=== PATIENT | male | born 1975 | race Caucasian/White ===

== ENCOUNTER 2020-12-19 14:21 | Emergency (ER) | payer SELFPAY ==
[2020-12-19] MEDS ORDERED: Cephalexin 500 MG Cap PO ONE (15:00)
[2020-12-19] MEDS ORDERED: Diphtheria,Pertussis(Acell),Tetanus Vaccine 0.5 ML Syringe IM ONE (15:00)
--- NOTE | 2020-12-19 15:14 | EDM.PDOC ---
ED HPI GENERAL MEDICAL PROBLEM - General Chief Complaint: Upper Extremity Injury/Pain Stated Complaint: LEFT HAND INJURY Time Seen by Provider: 12/19/20 14:24 Source of Information: Reports: Patient History Limitations: Reports: No Limitations - History of Present Illness INITIAL COMMENTS - FREE TEXT/NARRATIVE: History of present illness: 45-year-old male presents complaining of left hand 4th digit swelling, redness and pain that started approximately 5 days ago. He reports no significant PMH. Patient states that he moved to [place] recently and has been building wood boxes. He is unsure if he had a splinter in his finger or not. Reports that he is unable to make a complete closed fist due to pain and swelling. Denies any significant trauma to his hand or fingers. Denies having any fevers or chills. Reports no history of skin infections in the past. Is moderately severe worse when it is touched worse with range of motion. There is no significant radiation. Is no significant associated signs of systemic infection Review of systems: As per history of present illness and below otherwise all systems reviewed and negative. Past medical history: As per history of present illness and as reviewed below otherwise noncontributory. Surgical history: As per history of present illness and as reviewed below otherwise noncontributory. Social history: Tobacco: 1 ppd Alcohol: socially Illicit drugs: Denies. Family history: As per history of present illness and as reviewed below otherwise noncontributory. Physical exam: Constitutional - well developed, well-nourished and in no acute distress HEENT - normocephalic, no evidence of trauma - external nose and mouth normal - no mass in neck and no JVD - mucosae moist EYES - EOMI intact. Respiratory - no respiratory distress, equal bilateral expansion, lungs clear to auscultation and no abnormal lung sounds Cardiovascular - Regular Rhythm with S1 and S2 appreciated and no murmur, gallop or rub. GI - abdomen soft without distension or organomegaly - normal bowel sounds - no guard or rebound. Musculoskeletal: Left Hand - circumferential edema and erythema of proximal 4th digit and edema of dorsum of hand. Mild ttp. Mild increased warmth to touch. Unable to fully flex and extend 4th digit secondary to pain. Neurologic - Alert and oriented times four - CN II-XII grossly intact - motor sensory and coordination symmetrically normal. Psychiatric - appropriate mood and affect with normal thought content Diagnostics: Bedside ultrasound. Therapeutics: Keflex Boostrix Impression: Tenosynovitis of left hand 4th digit Plan: Dose of keflex administered in ER department. Boostrix vaccine given in ER department. Will discharge with script of keflex and place referral to hand surgeon in [place], [place]. Definitive disposition and diagnosis as appropriate pending reevaluation and review of above. 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 Pain Score (Numeric/FACES): 4 - Related Data Allergies Allergy/AdvReac Type Severity Reaction Status Date / Time No Known Allergies Allergy Verified 12/19/20 14:36 Home Meds: Home Meds cephALEXin [Cephalexin] 500 mg PO BID #14 capsule 12/19/20 [Rx] cephALEXin [Cephalexin] 500 mg PO Q6HR #28 capsule 12/19/20 [Rx] Past Medical History - Past Health History Medical/Surgical History: Denies Medical/Surgical History HEENT History: Reports: None Cardiovascular History: Reports: None Respiratory History: Reports: None Gastrointestinal History: Reports: None Genitourinary History: Reports: None Musculoskeletal History: Reports: Other (See Below) Other Musculoskeletal History: "wear and tear to shoulder causing me to need surgery" Neurological History: Reports: None Psychiatric History: Reports: None Endocrine/Metabolic History: Reports: None Hematologic History: Reports: None Immunologic History: Reports: None Oncologic (Cancer) History: Reports: None Dermatologic History: Reports: None - Infectious Disease History Infectious Disease History: Reports: None - Past Surgical History Head Surgeries/Procedures: Reports: None Musculoskeletal Surgical History: Reports: Shoulder Surgery Social & Family History - Family History Family Medical History: No Pertinent Family History - Tobacco Use Tobacco Use Status *Q: Current Every Day Tobacco User Years of Tobacco use: 30 Packs/Tins Daily: 1 - Caffeine Use Caffeine Use: Reports: None - Recreational Drug Use Recreational Drug Use: No Review of Systems - Review of Systems Review Of Systems: Comprehensive ROS is negative, except as noted in HPI. ED EXAM, GENERAL - Physical Exam Exam: See Below Free Text/Narrative:: my physical exam is in the HPI Course - Vital Signs Text/Narrative:: With the bedside sono we did not see any obvious foreign body or organized abscess. Called the office of Dr. Giles and [place] who [place] specialist [place] to us. Their office will call the patient and see him expeditiously for follow-up. Last Recorded V/S: Last Vital Signs Temp 36.7 C 12/19/20 14:32 Pulse 90 12/19/20 14:32 Resp 20 12/19/20 14:32 BP 113/80 12/19/20 14:32 Pulse Ox 97 12/19/20 14:32 - Orders/Labs/Meds Orders: Active Orders 24 hr Category Date Time Status Vaccines to be Administered [RC] PER UNIT ROUTINE Care 12/19/20 15:00 Ordered Meds: Medications Discontinued Medications Generic Name Dose Route Start Last Admin Trade Name Reema PRN Reason Stop Dose Admin Cephalexin 500 mg 12/19/20 15:00 Cephalexin 500 Mg Cap PO 12/19/20 15:01 ONETIME ONE Diphtheria/Tetanus/Acell Pertussis 0.5 ml 12/19/20 15:00 Diphtheria,Pertussis(Acell),Tetanus Vaccine 0.5 Ml Syringe IM 12/19/20 15:01 .ONCE ONE Departure - Departure Time of Disposition: 15:19 Disposition: Home, Self-Care 01 Condition: Good Clinical Impression: Cellulitis and abscess of hand, Synovitis - Discharge Information Instructions: Cellulitis, Adult Referrals: PCP,None [Primary Care Provider] - Additional Instructions: Exercise the range of motion of the hand is fully as you can. Do hot soaks. The hand doctor is going to call you but in case there is a communication problem number is [phone]. The doctors names are Sammy Thompson [facility] - [facility] [address] [place] [address] [place] [address] The following information is given to patients seen in the emergency department who are being discharged to home. This information is to outline your options for follow-up care. We provide all patients seen in our emergency department with a follow-up referral. The need for follow-up, as well as the timing and circumstances, are variable depending upon the specifics of your emergency department visit. If you don't have a primary care physician on staff, we will provide you with a referral. We always advise you to contact your personal physician following an emergency department visit to inform them of the circumstance of the visit and for follow-up with them and/or the need for any referrals to a consulting specialist. The emergency department will also refer you to a specialist when appropriate. This referral assures that you have the opportunity for follow-up care with a specialist. All of these measure are taken in an effort to provide you with optimal care, which includes your follow-up. Under all circumstances we always encourage you to contact your private physician who remains a resource for coordinating your care. When calling for follow-up care, please make the office aware that this follow-up is from your recent emergency room visit. If for any reason you are refused follow-up, please contact the [facility] Emergency Department at and asked to speak to the emergency department charge nurse. Sepsis Event Note (ED) - Evaluation Sepsis Screening Result: No Definite Risk - Focused Exam Vital Signs: Vital Signs Temp Pulse Resp BP Pulse Ox 12/19/20 14:32 36.7 C 90 20 113/80 97 - My Orders Last 24 Hours: My Active Orders 12/19/20 15:00 Vaccines to be Administered [RC] PER UNIT ROUTINE - Assessment/Plan Last 24 Hours: My Active Orders 12/19/20 15:00 Vaccines to be Administered [RC] PER UNIT ROUTINE
== END 2020-12-19 15:31 | disposition home or self-care (01) ==
LOC: MW.ED 14:21
DX: M65.9 Synovitis and tenosynovitis, unspecified (principal); L03.114 Cellulitis of left upper limb; L02.512 Cutaneous abscess of left hand; Z23 Encounter for immunization; Z72.0 Tobacco use
CPT/HCPCS: 90471; 90715; 99283; A9270